=== PATIENT | male | born 1980 | race Caucasian/White ===

== ENCOUNTER 2016-08-02 07:00 | Inpatient (IN) | payer OTHER ==
[~2016-08-02] VITALS: Ht 180.3 cm; Wt 78.0 kg
--- NOTE | ~2016-08-02 | EKG ---
[address] [place] [address] ELECTROCARDIOGRAM REPORT Name: MACHELLE VILLAFANA Room #: 454-P [facility]#: [id number] Admission: 08/02/16 Attend Phys: James Mota MD Discharge: Date of : 80 Report #: [id number] THIS REPORT FOR: //name// [facility] ED Test Date: 2016-08-02 Test Time: 08:13:17 Pat Name: MACHELLE VILLAFANA Department: Room: [facility] Gender: M [employer] Illustrator: BYRON : 1980 Requested By: Orville Johnson Order Number: [id number] MD: Qasim Andrews Measurements Intervals [place] Rate: 86 P: 51 AR: 148 QRS: 29 QRSD: 91 T: 31 QT: 361 QTc: 432 Interpretive Statements Sinus rhythm No significant abnormality No previous ECG available for comparison Electronically Signed On 08-03-2016 8:02:54 CDT by Qasim Andrews [email or web address] <ELECTRONICALLY SIGNED> By: Qasim Andrews MD, [facility] 08/03/16 0802 2 2 Qasim Andrews MD, FACC /EPI
[2016-08-02 07:00] VITALS: BP 145/96
[~2016-08-02 07:00] MED LIST: IBUPROFEN 800800 MG PO
[2016-08-02 07:44] LABS: ABSOLUTE NEUTROPHILS 8.1 thou/uL (1.4-8.2); BASOPHILS 0.8 % (0.0-2.0); EOSINOPHILS 2.1 % (0.0-3.0); HEMATOCRIT 45.8 % (42.0-52.0); HEMOGLOBIN 15.8 gm/dL (14.0-18.0); LYMPHOCYTES 27.8 % (24.0-44.0); MCH 32.4 pg (26.0-34.0); MCHC 34.4 g/dL (28.0-37.0); MCV 94.3 fL (80.0-100.0); MONOCYTES 7.5 % (1.0-8.0); POLYS 61.8 % (36.0-66.0); RBC 4.86 mil/uL (4.50-6.00); RDW 12.8 % (10.5-14.5); WBC 15.1 thou/uL (4.0-11.0)
[2016-08-02 07:46] LABS: MANUAL DIFF NO
[2016-08-02 08:15] LABS: PLATELET COUNT 335 thou/uL (150-400)
[2016-08-02 08:16] LABS: ANISOCYTOSIS SLIGHT
[2016-08-02 08:38] LABS: URINE BILIRUBIN NEGATIVE (Negative); URINE BLOOD NEGATIVE (Negative); URINE COLOR YELLOW; URINE GLUCOSE-RANDOM* NEGATIVE (Negative); URINE KETONES NEGATIVE (Negative); URINE LEUKOCYTES-REFLEX NEGATIVE (Negative); URINE PROTEIN (DIPSTICK) NEGATIVE (Negative); URINE SPECIFIC GRAVITY <= 1.005 (1.003-1.035); URINE UROBILINOGEN 0.2 E.U./dl (0.2-1.0)
[2016-08-02 08:51] LABS: ANION GAP 9 mmol/L (7-16); BUN 2 mg/dL (7-18); CALCIUM 9.2 mg/dL (8.5-10.1); CHLORIDE 104 mmol/L (98-107); CO2 27 mmol/L (21-32); CREATININE 1.2 mg/dL (0.7-1.3); GLUCOSE 91 mg/dL (74-106); POTASSIUM 4.1 mmol/L (3.5-5.1); SODIUM 140 mmol/L (136-145)
[2016-08-02 08:52] LABS: AMP/METHAMP POSITIVE (Negative); BARBITURATES Negative (Negative); BENZODIAZEPINES Negative (Negative); COCAINE Negative (Negative); METHADONE Negative (Negative); OPIATES Negative (Negative); PCP Negative (Negative); THC Negative (Negative)
[2016-08-02 09:11] LABS: ALBUMIN 3.8 g/dL (3.4-5.0); ALKALINE PHOSPHATASE 93 U/L (46-116); CK-MB MASS < 0.5 ng/mL (<0.5-3.6); MAGNESIUM 2.2 mg/dL (1.8-2.4); NT-PRO BRAIN NAT PEPTIDE 19 pg/mL (<300); SGOT 13 U/L (15-37); SGPT 23 U/L (30-65); TOTAL BILIRUBIN 0.4 mg/dL (<0.1-1.0); TOTAL PROTEIN 7.4 g/dL (6.4-8.2); TROPONIN-I < 0.04 ng/mL (<0.04-0.07)
[2016-08-02 10:02] VITALS: BP 123/79
[2016-08-02 11:00] VITALS: BP 112/70
[2016-08-02] MEDS ORDERED: WELLBUTRIN XL300 MG PO (11:24)
[2016-08-02 16:35] VITALS: BP 97/65
[2016-08-02 19:26] VITALS: BP 102/56
[2016-08-03 00:14] VITALS: BP 99/67
[2016-08-03 04:37] VITALS: BP 100/63
[2016-08-03 05:38] LABS: HEMATOCRIT 43.4 % (42.0-52.0); HEMOGLOBIN 14.7 gm/dL (14.0-18.0); MCHC 33.9 g/dL (28.0-37.0); MCV 94.4 fL (80.0-100.0); RBC 4.6 mil/uL (4.50-6.00); WBC 7.8 thou/uL (4.0-11.0)
[2016-08-03 05:48] LABS: CALCIUM 8.9 mg/dL (8.5-10.1); CREATININE 1.3 mg/dL (0.7-1.3); POTASSIUM 4.7 mmol/L (3.5-5.1)
[2016-08-03 07:18] VITALS: BP 98/63
[2016-08-03 11:08] VITALS: BP 116/78
[2016-08-03 14:05] VITALS: BP 116/78
== END 2016-08-03 14:32 | disposition home or self-care (01) | DRG 896 ==
LOC: ER 07:00 → EROBS 09:27 → 4W 10:00
PROVIDERS: Emergency Medicine; Hospitalist
DX: F15.10 Other stimulant abuse, uncomplicated (principal); G92 Toxic encephalopathy; F17.210 Nicotine dependence, cigarettes, uncomplicated; Z88.2 Allergy status to sulfonamides
CPT/HCPCS: 10045